=== PATIENT | male | born 1935 | race Caucasian/White ===

== ENCOUNTER 2018-04-13 10:57 | Emergency (ER) | payer MEDICARE ==
[2018-04-13 11:50] LABS: BASOPHILS % (AUTO) 0.4 % (0.0-5.0); EOSINOPHILS % (AUTO) 0.4 % (0.0-8.0); HEMATOCRIT 40.4 % (42-54); LYMPHOCYTES % (AUTO) 13.1 % (21.0-51.0); MEAN CORPUSCULAR HEMOGLOBIN 29.7 pg (27.0-33.0); MEAN CORPUSCULAR HGB CONC 32.3 g/dL (32.0-36.0); NEUTROPHILS % (AUTO) 76.1 % (40.0-77.0); NUCLEATED RED BLOOD CELLS 0.1 % (0.0-0.19); PLATELET COUNT (AUTO) 105 K/uL (130-400); RED BLOOD CELL COUNT(AUTO) 4.39 MIL/uL (4.50-6.20); RED CELL DISTRIBUTION WIDTH 16.1 % (11.0-15.5); WHITE BLOOD COUNT (AUTO) 8.1 K/uL (4.8-10.8)
[2018-04-13 12:20] LABS: POTASSIUM 4.3 mmol/L (3.5-5.1)
[2018-04-13 12:36] LABS: ALBUMIN 3.5 g/dL (3.5-5.0); BILIRUBIN,TOTAL 0.6 mg/dL (0.2-1.0); TOTAL PROTEIN, SERUM 7.3 g/dL (6.0-8.3)
[2018-04-13 12:39] LABS: CREATINE KINASE, TOTAL 320 U/L (21-232); MYOGLOBIN 386 ng/mL (10-92); TROPONIN I < 0.04 ng/mL (0.00-0.06)
[2018-04-13 12:56] LABS: INR 1.82 (0.85-1.15); PARTIAL THROMBOPLASTIN TIME 28.7 SEC (26.3-35.5); PROTHROMBIN TIME 18.9 SEC (9.6-11.6)
[2018-04-13 13:17] LABS: ABG BASE EXCESS 3.4 mmol/L (-2.0-3.0); ABG HCO3 29.4 mmol/L (21.0-28.0); ABG OXYGEN SATURATION 93.8 % (95.0-99.0); ABG PCO2 50 mmHg (35-48)
[2018-04-13 13:21] LABS: BILIRUBIN,URINE Small (NEGATIVE); COLOR,URINE Dark Yellow (YELLOW); GLUCOSE, URINE (UA) Negative (NEGATIVE); KETONES,URINE 15 mg/dL (NEGATIVE); LEUKOCYTE ESTERASE ,URINE Negative (NEGATIVE); NITRATE,URINE Negative (NEGATIVE); OCCULT BLOOD,URINE Nonhemolyzed Trace (NEGATIVE); PROTEIN,URINE POS 1+ (NEGATIVE)
[2018-04-13 13:22] LABS: APPEARANCE,URINE SLIGHTLY CLOUDY (CLEAR)
[2018-04-13 14:06] LABS: AMORPHOUS SEDIMENT,UR Few /LPF (None Seen); BACTERIA,URINE Few /HPF (None Seen); MUCUS,URINE Few LPF (None Seen); RBC,URINE 0-1 /HPF (0-1); SQUAMOUS EPITHELIAL CELL,UR Rare /HPF (0-2); WBC,URINE 0-1 /HPF (0-1)
== END 2018-04-13 14:32 | disposition home or self-care (01) ==
LOC: EDH 10:57
DX: R09.02 Hypoxemia (principal); R41.82 Altered mental status, unspecified; R53.1 Weakness; I10 Essential (primary) hypertension; E78.5 Hyperlipidemia, unspecified; J44.9 Chronic obstructive pulmonary disease, unspecified
CPT/HCPCS: 36415; 36600; 71045; 80053; 81001; 82550; 82803; 83605; 83874; 84484; 85025; 85610; 85730; 87040; 93005